=== PATIENT | male | born 1970 | race Caucasian/White ===

== ENCOUNTER 2017-02-19 13:45 | Emergency (ER) | payer MEDICAID ==
[2017-02-19 13:55] VITALS: RESP 16
[2017-02-19] MEDS ORDERED: CHLORDIAZEPOXIDE 25MG PREPK#6 BTL TAKEHOME ONE ×2 (13:56→14:05)
[2017-02-19] MEDS ORDERED: chlordiazePOXIDE 25 MG CAP PO ONE (13:57)
--- NOTE | 2017-02-19 14:02 | EDPHY ---
H & P Time Seen by Provider: 02/19/17 13:56 HPI/ROS: CHIEF COMPLAINT: Acute alcohol withdrawal HISTORY OF PRESENT ILLNESS: 46-year-old male took an Uber to the ER from the [facility] after he went requesting alcohol detoxification. Last drink of alcohol was this morning. Denies hallucination. Denies suicidal homicidal ideation, denies seizure. He would like remain sober from alcohol. States he is self- described alcoholic. He has no complaints of pain or discomfort. No dyspnea. No headache. No altered mentation. REVIEW OF SYSTEMS: A ten point review of systems was performed and is negative with the exception of the items mentioned in the HPI PAST MEDICAL & SURGICAL HISTORY: Self-described alcoholic SOCIAL HISTORY: last drink of alcohol was this morning PHYSICAL EXAM (Prior to examination, patient consented to physical exam, hands were washed and my usual and customary physical exam procedures followed) 1) GENERAL: Well-developed, well-nourished, alert and oriented. Appears anxious. 2) HEAD: Normocephalic, atraumatic 3) HEENT: Sclera anicteric. 4) NECK: Full range of motion, no meningeal signs. 5) LUNGS: Clear auscultation bilaterally, no wheezes, no rhonchi, no retractions. 6) HEART: Regular rate and rhythm. 7) ABDOMEN: No guarding, no rebound, no focal tenderness, 8) MUSCULOSKELETAL: tremulous. No peripheral edema or discoloration. 9) BACK: no visual or palpable abnormality. 10) SKIN: No rash, no petechiae. 11) Psychiatric: Patient is oriented X 3, there is no agitation. DIFFERENTIAL DIAGNOSIS: in no particular include but limited to acute alcohol withdrawal, alcohol withdrawal seizure, delirium tremens Smoking Status: Never smoked Constitutional: Initial Vital Signs Temperature (C) 37.0 C 02/19/17 13:51 Heart Rate 96 02/19/17 13:51 Respiratory Rate 16 02/19/17 13:51 Blood Pressure 147/105 H 02/19/17 13:51 O2 Sat (%) 97 02/19/17 13:51 O2 Delivery Mode Room Air Allergies/Adverse Reactions: No Known Allergies Allergy (Unverified 02/19/17 13:51) Home Medications: Medication Instructions Recorded Effexor 02/19/17 MDM/Departure - MDM ED Course/Re-evaluation: Doubt delirium tremens. No alcohol withdrawal seizure. I think [facility] - Depart Disposition: Home, Routine, Self-Care Clinical Impression: Alcohol withdrawal Qualifiers: Complication of substance-induced condition: uncomplicated Qualified Code(s): F10.230 - Alcohol dependence with withdrawal, uncomplicated Condition: Good Instructions: Alcohol Withdrawal (ED) Referrals: [facility] [Outside] - 1 day without fail
[2017-02-19 14:16] VITALS: BP 118/74; PULSE 94; TEMP 98.4; O2SAT 96
== END 2017-02-19 14:18 | disposition home or self-care (01) ==
DX: F10.230 Alcohol dependence with withdrawal, uncomplicated (principal)